=== PATIENT | female | born 1960 | race Caucasian/White ===

== ENCOUNTER → 2016-08-11 | Day surgery (SDC) | payer OTHER ==
[~2016-08-11] VITALS: Ht 161.3 cm; Wt 57.2 kg
[~2016-08-11] MED LIST: ACETAMINOPHEN 325 MG TAB PO PRN; ACETYLCHOLINE OPHTH SOLN 1% 2ML As Ordered ONE; ACETYLCHOLINE OPHTH SOLN 1% 2ML XX ONE; AcetaZOLAMIDE 500 MG ER CAP PO ONE; BALANCED SALT IRRIGATION SOLUTION 500ML BAG (FOR OR EYE MACHINE) As Ordered ONE; CEFUROXIME 1MG/0.1ML INTRACAMERAL INJ As Ordered ONE; CEFUROXIME 1MG/0.1ML INTRACAMERAL INJ ICAM ONE; CYCL10TA PO; CYCLOPENTOLATE 2% OPHTH SOLN As Ordered ONE; CYCLOPENTOLATE 2% OPHTH SOLN OD ONE; ESTR62TA PO; HEALON DUET (HEALON 10MG/ML 0.55ML & HEALON ENDOCOAT 30MG/ML 0.85ML) As Ordered ONE; HEALON DUET (HEALON 10MG/ML 0.55ML & HEALON ENDOCOAT 30MG/ML 0.85ML) XX ONE; KETOROLAC 0.5% OPHTH SOLN OD ONE; LIDOCAINE 1% SDV 5 ML VIAL As Ordered ONE; LIDOCAINE 1% SDV 5 ML VIAL XX ONE; LIDOCAINE 4% INJ 5 ML AMP OU ONE; MIDAZOLAM INJ 2 MG/2 ML VIAL (J2250) As Ordered ONE; OFLOXACIN 0.3 % (OCUFLOX) OPTH SOL 5ML As Ordered ONE; OFLOXACIN 0.3 % (OCUFLOX) OPTH SOL 5ML OD ONE; OMEP40CA2 PO; PARO10TA84 PO; PARO40TA87 PO; PHENYLEPHRINE 2.5% OPHTH SOL 2ML As Ordered ONE; PHENYLEPHRINE 2.5% OPHTH SOL 2ML OD ONE; POVIDONE-IODINE 5% OPHTH PREP SOL 30ML As Ordered ONE; PROPARACAINE 0.5% OPHTH SOL 15ML OD PRN; SUMA100T2 PO; TOPA50TA7 PO; TRIMETHOBENZAMIDE 300 MG CAP PO PRN; TROPICAMIDE 1% OPHTH SOLN 2 ML As Ordered ONE; TROPICAMIDE 1% OPHTH SOLN 2 ML OD ONE; fentaNYL 100 MCG/2 ML INJECTION (J3010) As Ordered ONE
[2016-08-11 11:45] VITALS: BP 133/94
--- NOTE | 2016-08-12 06:24 | RO ---
DATE OF PROCEDURE: 08/11/2016 PREPROCEDURE DIAGNOSIS: Age related nuclear cataract right eye. POSTPROCEDURE DIAGNOSIS: Age related nuclear cataract right eye. PROCEDURE: Phacoemulsification and posterior chamber intraocular lens implantation right eye. The lens used was PCB00, 17.0 diopter. SURGEON: Diane Pastor MD BLOCK MAKING MACHINE OPERATOR: ANESTHESIA: Topical with sedation. DESCRIPTION OF PROCEDURE: The patient was prepped and draped in the usual fashion. A lid speculum was placed between the lids. The eye was fixated. A stab incision was made to the anterior chamber, and 1% non-preserved lidocaine was instilled. Then, viscoelastic was instilled. The eye was re-fixated. A 2.75 mm sapphire keratome was used to make a clear corneal temporal limbal incision. Capsulorrhexis was begun with a 30-gauge bent needle and then carried out in a circular fashion with capsulorrhexis forceps. The lens was hydrodissected, and then the phacoemulsification unit was used to make a groove in the nucleus in two meridians. The nucleus was then cracked into four quadrants. Each quadrant was removed with the phacoemulsification unit. Any remaining cortex was removed with the irrigation and aspiration (I and A) unit. Capsular bag was refilled with viscoelastic. A posterior chamber intraocular lens was placed in the capsular bag without difficulty. Any remaining viscoelastic was removed with the I and A unit. The wound was hydrated, and Miochol and cefuroxime were instilled into the anterior chamber. The patient tolerated the procedure well and went to the recovery room in stable condition.
== END | disposition home or self-care (01) ==
LOC: M SDC 09:18
PROVIDERS: ATTEND Ophthalmology
DX: H25.11 Age-related nuclear cataract, right eye (principal); I49.9 Cardiac arrhythmia, unspecified; K21.9 Gastro-esophageal reflux disease without esophagitis; G89.29 Other chronic pain; M54.2 Cervicalgia; M54.5 Low back pain; K59.00 Constipation, unspecified; J34.2 Deviated nasal septum; J34.3 Hypertrophy of nasal turbinates; K12.30 Oral mucositis (ulcerative), unspecified; M12.9 Arthropathy, unspecified; F41.9 Anxiety disorder, unspecified; F32.9 Major depressive disorder, single episode, unspecified; G43.909 Migraine, unspecified, not intractable, without status migrainosus; F17.290 Nicotine dependence, other tobacco product, uncomplicated; M81.0 Age-related osteoporosis without current pathological fracture; Z88.5 Allergy status to narcotic agent; Z79.899 Other long term (current) drug therapy; Z90.710 Acquired absence of both cervix and uterus; Z92.21 Personal history of antineoplastic chemotherapy

== ENCOUNTER → 2016-08-30 | Day surgery (SDC) | payer OTHER ==
[~2016-08-30] VITALS: Ht 160 cm; Wt 56.7 kg
[~2016-08-30] MED LIST changes: -ACETYLCHOLINE OPHTH SOLN 1% 2ML As Ordered ONE; -ACETYLCHOLINE OPHTH SOLN 1% 2ML XX ONE; -AcetaZOLAMIDE 500 MG ER CAP PO ONE; +BETAMETHASONE SOLUSPAN 6MG/ML INJ 5ML (J0702) As Ordered ONE; -CEFUROXIME 1MG/0.1ML INTRACAMERAL INJ As Ordered ONE; -CEFUROXIME 1MG/0.1ML INTRACAMERAL INJ ICAM ONE; -CYCLOPENTOLATE 2% OPHTH SOLN As Ordered ONE; -CYCLOPENTOLATE 2% OPHTH SOLN OD ONE; +D5W/0.45% SODIUM CHLORIDE 1,000 ML IV SCH; -HEALON DUET (HEALON 10MG/ML 0.55ML & HEALON ENDOCOAT 30MG/ML 0.85ML) As Ordered ONE; -HEALON DUET (HEALON 10MG/ML 0.55ML & HEALON ENDOCOAT 30MG/ML 0.85ML) XX ONE; +LIDOCAINE 1% MDV 20ML VIAL As Ordered ONE; -LIDOCAINE 1% SDV 5 ML VIAL XX ONE; -OFLOXACIN 0.3 % (OCUFLOX) OPTH SOL 5ML As Ordered ONE; +ONDANSETRON 4MG/2ML VIAL (J2405) IV PRN; -PHENYLEPHRINE 2.5% OPHTH SOL 2ML As Ordered ONE; -PHENYLEPHRINE 2.5% OPHTH SOL 2ML OD ONE; -PROPARACAINE 0.5% OPHTH SOL 15ML OD PRN; +PROPARACAINE 0.5% OPHTH SOL 15ML XX PRN; +PROPOFOL 200 MG/20 ML VIAL As Ordered ONE; +TOBRADEX OPHTH OINT 3.5 GM As Ordered ONE; -TROPICAMIDE 1% OPHTH SOLN 2 ML As Ordered ONE; -TROPICAMIDE 1% OPHTH SOLN 2 ML OD ONE; +mitoMYcin (FOR OPHTHALMIC USE) 0.3MG/1ML SYRINGE IN NaCl (J7999) As Ordered ONE
[2016-08-30 16:45] VITALS: BP 139/87
--- NOTE | 2016-08-31 11:22 | RO ---
DATE OF PROCEDURE: 08/30/2016 PREPROCEDURE DIAGNOSIS: Open angle glaucoma, right eye. POSTPROCEDURE DIAGNOSIS: Open angle glaucoma, right eye. PROCEDURE PERFORMED: Anterior chamber and insertion of EX-PRESS shunt. SURGEON: Diane Pastor MD EDUCATIONAL PROGRAMMING DIRECTOR: ANESTHESIA: Topical with sedation. The patient was prepped and draped in the usual fashion. A lid speculum was placed between the lids. First, attention was directed temporally where an I A probe was placed through the original cataract incision, which was easily opened since it was fresh. The anterior chamber was irrigated just to make sure that there was no retained cortex. A very small amount of cortical material was removed. The I A probe was removed and a suture, #10-0 nylon was placed in the wound with the suture turned into the cornea. The eye was irrigated with balanced salt solution. Attention was then directed superiorly and a conjunctiva was opened up and a fornix-based conjunctival flap. Any bleeding was controlled with electrocautery. With the forceps and a crescent knife a triangular flap was made partial thickness through the sclerae and carried up onto clear cornea. A pledget of mitomycin was placed underneath the conjunctiva and placed for about 40 seconds. The pledget was removed and the eye was irrigated with 15 mL of balanced salt solution. A 25-gauge needle was used to make a stab incision into the anterior chamber and the EX-PRESS shunt was placed through this premade needle tract. The scleral flap was then tacked down using one #10-0 nylon suture. The conjunctiva was then closed using two #8-0 Vicryl sutures and a #10-0 nylon suture to the clear cornea. TobraDex ointment was applied and patch and shield were placed. The patient tolerated the procedure well and went to recovery room in stable condition.
== END | disposition home or self-care (01) ==
LOC: M SDC 13:07
PROVIDERS: ATTEND Ophthalmology
DX: H40.10X0 Unspecified open-angle glaucoma, stage unspecified (principal); I49.9 Cardiac arrhythmia, unspecified; K21.9 Gastro-esophageal reflux disease without esophagitis; M12.9 Arthropathy, unspecified; M54.2 Cervicalgia; F41.9 Anxiety disorder, unspecified; F32.9 Major depressive disorder, single episode, unspecified; G43.909 Migraine, unspecified, not intractable, without status migrainosus; F17.290 Nicotine dependence, other tobacco product, uncomplicated; Z88.5 Allergy status to narcotic agent; Z79.899 Other long term (current) drug therapy; Z92.21 Personal history of antineoplastic chemotherapy; Z90.710 Acquired absence of both cervix and uterus; Z96.1 Presence of intraocular lens
CPT/HCPCS: 66183; C1783

== ENCOUNTER → 2020-11-05 | Outpatient (REF) ==
[~2020-11-05] MED LIST changes: -ACETAMINOPHEN 325 MG TAB PO PRN; -BALANCED SALT IRRIGATION SOLUTION 500ML BAG (FOR OR EYE MACHINE) As Ordered ONE; -BETAMETHASONE SOLUSPAN 6MG/ML INJ 5ML (J0702) As Ordered ONE; +CYCL-707 PO; -CYCL10TA PO; -D5W/0.45% SODIUM CHLORIDE 1,000 ML IV SCH; -KETOROLAC 0.5% OPHTH SOLN OD ONE; -LIDOCAINE 1% MDV 20ML VIAL As Ordered ONE; -LIDOCAINE 1% SDV 5 ML VIAL As Ordered ONE; -LIDOCAINE 4% INJ 5 ML AMP OU ONE; -MIDAZOLAM INJ 2 MG/2 ML VIAL (J2250) As Ordered ONE; -OFLOXACIN 0.3 % (OCUFLOX) OPTH SOL 5ML OD ONE; -OMEP40CA2 PO; +OMEP40CA97 PO; -ONDANSETRON 4MG/2ML VIAL (J2405) IV PRN; +PARO10TA3 PO; -PARO10TA84 PO; +PARO40TA3 PO; -PARO40TA87 PO; -POVIDONE-IODINE 5% OPHTH PREP SOL 30ML As Ordered ONE; -PROPARACAINE 0.5% OPHTH SOL 15ML XX PRN; -PROPOFOL 200 MG/20 ML VIAL As Ordered ONE; -TOBRADEX OPHTH OINT 3.5 GM As Ordered ONE; -TOPA50TA7 PO; +TOPA50TA8 PO; -TRIMETHOBENZAMIDE 300 MG CAP PO PRN; -fentaNYL 100 MCG/2 ML INJECTION (J3010) As Ordered ONE; -mitoMYcin (FOR OPHTHALMIC USE) 0.3MG/1ML SYRINGE IN NaCl (J7999) As Ordered ONE
--- NOTE | 2020-11-06 03:48 | REPPI ---
INDICATION: DISABILITY DETERMINATION COMPARISON: None. TECHNIQUE: Internal rotation, external rotation, and Y view. FINDINGS: Evidence for old healed clavicle fracture. The acromioclavicular joint itself appears relatively normal. The glenohumeral joint appears relatively normal and age-appropriate. The subacromial space is normal no periarticular calcifications or loose bodies are identified. IMPRESSION: Evidence for old healed clavicle fracture. Otherwise essentially age-appropriate appearance of the acromioclavicular and glenohumeral joints. <Electronically signed by Sonny Ochoa > 11/06/20 [id number]
--- NOTE | 2020-11-06 03:49 | REPPI ---
INDICATION: DISABILITY DETERMINATION COMPARISON: None. TECHNIQUE: AP, lateral, coned-down views of the lumbar spine. FINDINGS: Three views of the lumbosacral spine demonstrate satisfactory alignment and lordosis without acute fracture / compression injury or subluxation. Moderate/early advanced multilevel degenerative changes include endplate sclerosis, osteophytosis, and hypertrophic facet changes. Disc space narrowing is also suggested at the L5-S1 and L4-5 levels. There appears to be chronic retrolisthesis at the L1-2 level. IMPRESSION: 1. Moderate early advanced multilevel degenerative changes. <Electronically signed by Sonny Ochoa > 11/06/20 [id number]
== END ==
LOC: M PLAIMG 14:42
PROVIDERS: ATTEND Internal Medicine
DX: M40.56 Lordosis, unspecified, lumbar region (principal); M25.78 Osteophyte, vertebrae; M25.511 Pain in right shoulder

== ENCOUNTER 2024-05-17 09:48 | Day surgery (SDC) | payer OTHER ==
[~2024-05-17] VITALS: Ht 162.6 cm; Wt 60.3 kg
[~2024-05-17 09:48] MED LIST changes: +ATOR1TAB21 PO; +ATROPINE SULFATE 1% OPHTH SOLN 2ML BTL OS SCH; +FENO67CA16 PO; +GABA-1172 PO; +METO1TAB32 PO; +OMEP40CA4 PO; +OMEP40CA5 PO; -OMEP40CA97 PO; +PARO40TA2 PO; +PHENYLEPHRINE 10% OPHTH SOL 5ML OS PRN; +PRAM0.5T4 PO
[2024-05-17] MEDS ORDERED: MIDAZOLAM INJ 2MG/2ML VIAL As Ordered ONE (10:48)
[2024-05-17] MEDS ORDERED: fentaNYL 100 MCG/2 ML INJECTION As Ordered ONE (10:48)
[2024-05-17] MEDS: OFLOXACIN 0.3 % (OCUFLOX) OPTH SOL 5ML OS ONE (11:28)
[2024-05-17] MEDS: TROPICAMIDE 1% OPHTH SOLN 15ML OS SCH (11:29)
[2024-05-17] MEDS: CYCLOPENTOLATE 1% OPHTH SOLN 2ML BTL OS SCH (11:29)
[2024-05-17] MEDS: LIDOCAINE 3.5 % 1ML OPHTH TOPICAL GEL OU ONE (11:29)
[2024-05-17] MEDS: PHENYLEPHRINE 2.5% OPHTH SOL 2ML OS SCH (11:29)
[2024-05-17] MEDS: LIDOCAINE 1% SDV 5ML VIAL As Ordered ONE (11:37)
[2024-05-17] MEDS: CEFUROXIME 1MG/0.1ML INTRACAMERAL INJ As Ordered ONE (11:37)
[2024-05-17] MEDS: BSS IRRIG/VANCO(10MG)/TOBRA(5MG)/EPINEPH(1:1000-0.5CC)500ML BAG-ORONLY As Ordered ONE (11:38)
[2024-05-17 12:47] VITALS: BP 133/84; TEMP 97.1; O2SAT 94
== END 2024-05-17 13:02 | disposition home or self-care (01) ==
LOC: M SDC 09:48
PROVIDERS: ATTEND Ophthalmology
DX: H25.12 Age-related nuclear cataract, left eye (principal); I10 Essential (primary) hypertension; E78.00 Pure hypercholesterolemia, unspecified; I25.2 Old myocardial infarction; I73.00 Raynaud's syndrome without gangrene; K21.9 Gastro-esophageal reflux disease without esophagitis; Z79.899 Other long term (current) drug therapy; Z85.41 Personal history of malignant neoplasm of cervix uteri; Z92.21 Personal history of antineoplastic chemotherapy; F17.210 Nicotine dependence, cigarettes, uncomplicated; Z90.710 Acquired absence of both cervix and uterus; Z90.89 Acquired absence of other organs; Z88.5 Allergy status to narcotic agent
CPT/HCPCS: 66984; J0697; J2250; J3010; V2632